=== PATIENT | male | born 1995 | race Two or more races ===

== ENCOUNTER 2018-10-28 17:59 | Emergency (ER) | payer SELFPAY ==
[~2018-10-28] VITALS: Ht 170.2 cm; Wt 70.3 kg
[2018-10-28 18:13] VITALS: BP 122/81
[2018-10-28 18:15] VITALS: BP 122/81
[2018-10-28] MEDS ORDERED: Bacitracin Oint UD TOPIC ONE (18:15)
[2018-10-28] MEDS ORDERED: Tetanus/Diptheria/Pertussis IM ONE (18:15)
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
[2018-10-28 18:39] LABS: APPEARANCE,URINE CLEAR; BILIRUBIN, URINE NEGATIVE (NEGATIVE); GLUCOSE, URINE (UA) NEGATIVE (NEGATIVE); KETONES,URINE 2+ (NEGATIVE); LEUKOCYTE ESTERASE ,URINE 1+ (NEGATIVE); NITRITE,URINE NEGATIVE (NEGATIVE); PH,URINE 5 (4.5-8.0); PROTEIN,URINE 2+ (NEGATIVE); UROBILINOGEN,URINE 1 MG/DL (0.0-1.0)
[2018-10-28 18:40] LABS: COLOR,URINE YELLOW
[2018-10-28 18:45] VITALS: BP 118/74
[2018-10-28 18:47] LABS: BASOPHILS % (AUTO) 1.1 % (0.0-2.0); EOSINOPHILS % (AUTO) 0.1 % (0.0-3.0); HEMATOCRIT 40.8 % (42.0-52.0); HEMOGLOBIN 14.8 G/DL (14.2-18.0); LYMPHOCYTES % (AUTO) 12.3 % (20.0-45.0); MEAN CORPUSCULAR VOLUME 89 FL (80-99); MONOCYTES % (AUTO) 5.9 % (1.0-10.0); NEUTROPHILS % (AUTO) 80.6 % (45.0-75.0); PLATELET COUNT 297 K/UL (150-450); WHITE BLOOD COUNT 13.8 K/UL (4.8-10.8)
[2018-10-28 18:50] LABS: ANION GAP 12 mmol/L (5-15); BLOOD UREA NITROGEN 18 mg/dL (7-18); CALCIUM 9.5 MG/DL (8.5-10.1); CARBON DIOXIDE 24 MMOL/L (21-32); CHLORIDE 101 MMOL/L (98-107); CREATININE 1.2 MG/DL (0.55-1.30); POTASSIUM 3.2 MMOL/L (3.5-5.1); SODIUM 137 MMOL/L (136-145)
[2018-10-28] MEDS ORDERED: cefTRIAXone 1 GM in NS 55 ML IVPB ONE (19:00)
[2018-10-28 19:05] VITALS: BP 115/69
[2018-10-28 19:10] LABS: ALANINE AMINOTRANSFERASE 36 U/L (12-78); ALBUMIN 3.9 G/DL (3.4-5.0); ALKALINE PHOSPHATASE 82 U/L (46-116); ASPARTATE AMINO TRANSFERASE 54 U/L (15-37); BILIRUBIN,TOTAL 0.9 MG/DL (0.2-1.0); CREATINE KINASE 1190 U/L (26-308)
[2018-10-29] MEDS ORDERED: CEPHALEXIN500 MG ORAL (02:07)
[2018-10-29 05:22] VITALS: BP 113/65
--- NOTE | 2018-10-29 09:37 | Diagnostic Imaging Report ---
Indication: Altered level of consciousness Technique: Contiguous 5 mm thick transaxial imaging of the head obtained in a Siemens Sensation [address] scanner. Soft tissue and bone windows generated. Automatic Exposure Control was utilized. Total Dose length Product (DLP): 1365.[address] Dose Index Volume (CTDIvol): 70.38 mGy Comparison: none Findings: The size and configuration of the cortical sulci, basal cisterns, and ventricles are within normal limits for age. There is no mass effect, midline shift, or edema identified. There is no evidence of acute hemorrhage or abnormal intra-axial or extra-axial fluid collections. The bones and soft tissues are unremarkable. Impression: No mass effect, edema or acute bleed. [facility] has communicated the preliminary results to the Emergency Department. Their findings are largely concordant with this report. The CT scanner at [facility] is accredited by the [employer] and the scans are performed using dose optimization techniques as appropriate to a performed exam including Automatic Exposure control.
--- NOTE | 2018-10-29 12:19 | Diagnostic Imaging Report ---
Indication: Dyspnea Comparison: None A single view chest radiograph was obtained. Findings: Cardiomediastinal appearance is within normal limits for age. The lungs are clear. Pulmonary vascularity is appropriate. The diaphragmatic contour is smooth and costophrenic angles are sharp. No pleural effusions are identified. The bones are unremarkable. Impression: No acute findings
--- NOTE | 2018-10-30 15:28 | Cardiology Report ---
APPROVED REPORT EKG Measurement Heart [id number] Sinus rhythm with short NE Otherwise normal ECG
== END 2018-10-29 05:22 | disposition home or self-care (01) ==
LOC: EDBD 17:59 → EMR 18:26
DX: T50.904A Poisoning by unspecified drugs, medicaments and biological substances, undetermined, initial encounter (principal); Y92.9 Unspecified place or not applicable; N39.0 Urinary tract infection, site not specified; D72.829 Elevated white blood cell count, unspecified; S20.211A Contusion of right front wall of thorax, initial encounter; S40.812A Abrasion of left upper arm, initial encounter; S40.811A Abrasion of right upper arm, initial encounter; X58.XXXA Exposure to other specified factors, initial encounter; Y92.89 Other specified places as the place of occurrence of the external cause
CPT/HCPCS: 36415; 70450; 71045; 80053; 80307; 81003; 82550; 85025; 87086; 90471; 90715; 93005; 96361; 96365; 99284; G0480; J0696; 80329